=== PATIENT | female | born 1970 | race Two or more races ===

== ENCOUNTER 2019-07-26 13:50 | Emergency (ER) | payer OTHER ==
[~2019-07-26] VITALS: Ht 160 cm; Wt 68.9 kg
[2019-07-26] MEDS ORDERED: FEOSOL325 MG PO (14:18)
[2019-07-26] MEDS ORDERED: FOLIC ACID PO (14:18)
[2019-07-26] MEDS ORDERED: ATACAND16 MG PO (14:19)
[2019-07-26] MEDS ORDERED: GLIMEPIRIDE1 MG PO (14:20)
[2019-07-27] MEDS ORDERED: INTEGRA PLUS C1 EACH PO (14:13)
== END 2019-07-27 15:03 ==
LOC: ER 13:50
DX: D50.8 Other iron deficiency anemias (principal); I10 Essential (primary) hypertension; E11.9 Type 2 diabetes mellitus without complications
CPT/HCPCS: 86904 ×2; 36430 ×2; 86922 ×2; P9021 ×2